=== PATIENT | female | born 1990 | race Caucasian/White ===

== ENCOUNTER 2023-01-18 08:04 | Emergency (ER) | payer SELFPAY ==
--- NOTE | 2023-01-18 08:07 | XRR_ITS ---
PROCEDURE INFORMATION: Exam: XR Chest Exam date and time: 01/18/2023 8:53 AM Age: 32 years old Clinical indication: Pain; Chest pressure; Additional info: Cp TECHNIQUE: Imaging protocol: Radiologic exam of the chest. Views: 1 view. COMPARISON: No relevant prior studies available. FINDINGS: Lungs: Unremarkable. No consolidation. Pleural spaces: Unremarkable. No pleural effusion. No pneumothorax. Heart/Mediastinum: Unremarkable. No cardiomegaly. Bones/joints: Unremarkable. XR/XR chest 1V portable [id number] IMPRESSION: No acute findings.
--- NOTE | 2023-01-18 08:08 | ECG_ITS ---
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 Measurements Intervals [place] Rate: 72 P: 67 OH: 182 QRS: 51 QRSD: 97 T: 56 QT: 379 QTc: 417 Interpretive Statements SINUS RHYTHM No previous ECG available for comparison Electronically Signed On 01-19-2023 9:42:52 FREIGHT BOOKER by Sanjana Fontenot M.D. [id number]
[2023-01-18 08:20] VITALS: BP 171/85; PULSE 76; RESP 16; TEMP 37.1; O2SAT 100; BMI 25.0
--- NOTE | 2023-01-18 08:26 | ED_ITS ---
HPI - Chest Pain General: Chief Complaint: Chest Pain Stated Complaint: chest pain Time Seen by Provider: 01/18/23 08:07 Source: patient Mode of arrival: ambulatory Limitations: no limitations History of Present Illness: 32-year-old female states that she had had some chest discomfort this morning. States it was a sharp pain she checked her blood pressure was in the 180s. States the pain is since resolved she has no known history of hypertension and is hypertensive here she denies any shortness of breath denies any cough or fever. Denies any abdominal pain or vomiting Associated symptoms: Deny abdominal pain, dyspnea, fever(s), nausea or vomiting Review of Systems Const: Denies: fever(s), chills, body aches or change in appetite ENMT: Denies: throat pain or dental pain Card: Reports: chest pain Resp: Denies: dyspnea GI: Denies: abdominal pain, nausea, vomiting or diarrhea : Denies: dysuria Musc: Denies: neck pain or back pain Skin/Breast: Denies: rash Neuro: Denies: headache(s) Physical Exam Const: COMMON NORMALS: no acute distress, patient oriented x3 and healthy appearing HENMT: COMMON NORMALS: normocephalic and atraumatic HEAD & SCALP: normocephalic and atraumatic Eye: COMMON NORMALS: Equal, round and reactive pupils present and EOMs intact bilaterally PUPIL: Yes Equal, round and reactive pupils present Neck/C-Spine: COMMON NORMALS: full ROM and supple Chest: COMMONS NORMALS: normal inspection of the chest and normal palpation of entire chest wall Resp: COMMON NORMALS: normal respiratory effort, No retractions, No use of accessory muscles and clear to auscultation bilaterally AUSCULTATION: clear to auscultation bilaterally Cardio: COMMON NORMALS: regular rate, regular rhythm and No murmurs present (Cardio) RATE: regular rate RHYTHM: regular rhythm GI: COMMON NORMALS: Normal to inspection, nondistended, normoactive bowel sounds present, Soft to palpation, non-tender and no masses PALPATION: Yes Soft to palpation Extremity: COMMON NORMALS: normal to inspection and full ROM Neuro: COMMON NORMALS: patient oriented x3, moves all extremities and no focal motor deficits Psych: COMMON NORMALS: mental status grossly normal, Normal thought process present and cooperative THOUGHT PROCESS: Normal thought process present Skin: COMMON NORMALS: no rashes or lesions noted and no wounds GENERAL SKIN EXAM: no rashes or lesions noted Course Vital Signs: Vital signs: Vital Signs Temperature 98.7 F 01/18/23 08:20 Pulse Rate 70 01/18/23 08:36 Respiratory Rate 16 01/18/23 08:36 Blood Pressure 171/85 01/18/23 08:36 Pulse Oximetry 100 01/18/23 08:36 Oxygen Delivery Me thod Room Air 01/18/23 08:36 MDM - Chest Pain Medical Decision Making Patient presents here with chest pains atypical in nature her initial troponin here is negative no signs of acute coronary syndrome. She has no signs of dissection or pulmonary embolism. She did have hypertension its improved here with hydralazine we will start her on Norvasc she is to follow-up with PCP and return if worsening she understands agrees to plan Medical Records I reviewed the patient's medical records. Lab Data I reviewed the patient's lab results. 01/18/23 08:24 01/18/23 08:24 Laboratory Results WBC 7.47 10^3/uL (3.29-11.43) 01/18/23 08:24 RBC 4.05 10^6/uL (3.85-5.65) 01/18/23 08:24 Hgb 9.90 g/dL (11.27-16.99) L 01/18/23 08:24 Hct 33.4 % (36-47) L 01/18/23 08:24 MCV 82.5 fl (85-98) L 01/18/23 08:24 MCH 24.4 pg (27-33) L 01/18/23 08:24 MCHC 29.6 g/dL (30-55) L 01/18/23 08:24 RDW 14.6 % (12.1-15.1) 01/18/23 08:24 Plt Count 218 10^3/cmm (157-399) 01/18/23 08:24 MPV 8.7 fL (7.4-10.4) 01/18/23 08:24 Neut % (Auto) 72.0 % 01/18/23 08:24 Lymph % (Auto) 19.9 % 01/18/23 08:24 [place] % (Auto) 5.1 % 01/18/23 08:24 Eos % (Auto) 2.3 % 01/18/23 08:24 Baso % (Auto) 0.4 % 01/18/23 08:24 Neut # (Auto) 5.38 10^3/uL (1.8-7.7) 01/18/23 08:24 Lymph # (Auto) 1.5 10^3/uL (0.8-4.8) 01/18/23 08:24 [place] # (Auto) 0.4 10^3/uL (0.2-0.9) 01/18/23 08:24 Eos # (Auto) 0.2 10^3/uL (0.0-0.8) 01/18/23 08:24 Baso # (Auto) 0.0 10^3/uL (0.0-0.1) 01/18/23 08:24 Nucleated RBC % (auto) 0 % 01/18/23 08:24 Nucleated RBCs # 0.0 /100WBC 01/18/23 08:24 Sodium 141 mmol/L (136-145) 01/18/23 08:24 Potassium 3.6 mmol/L (3.5-5.1) 01/18/23 08:24 Chloride 104 mmol/L (98-107) 01/18/23 08:24 Carbon Dioxide 25 mmol/L (22-29) 01/18/23 08:24 Anion Gap 15.6 (5-19) 01/18/23 08:24 BUN 10 mg/dL (6-20) 01/18/23 08:24 Creatinine 0.7 mg/dL (0.5-0.9) 01/18/23 08:24 GFR Calculation 95.8 mL/min (90-130) 01/18/23 08:24 Glucose 106 mg/dL (65-115) 01/18/23 08:24 Calculated Osmolality 291 mOsm/kg (285-295) 01/18/23 08:24 Calcium 9.2 mg/dL (8.5-10.5) 01/18/23 08:24 Total Bilirubin 0.7 mg/dL (0.15-1.2) 01/18/23 08:24 AST 14 U/L (0-32) 01/18/23 08:24 ALT 11 U/L (0-33) 01/18/23 08:24 Alkaline Phosphatase 60 U/L (35-105) 01/18/23 08:24 Troponin T Baseline < 6 ng/L (0-10) 01/18/23 08:24 Total Protein 7.2 g/dL (6.6-8.7) 01/18/23 08:24 Albumin 4.6 g/dL (3.5-5.2) 01/18/23 08:24 Globulin 2.6 g/dL (1.3-4.6) 01/18/23 08:24 Lipase 34 U/L (13-60) 01/18/23 08:24 All radiology interpretation(s) finalized by discharge EKG Data EKG 1: I personally reviewed and interpreted this EKG as follows: EKG interpretation date: 01/18/23 EKG interpretation time: 08:08 Interpretation: nsr hr [address] or t wave abnormalities qrs 97 qtc 404 Discharge Plan Discharge Patient Disposition: Home Clinical Impression: Hypertension, Chest pain Condition: Stable Prescriptions: New amlodipine [Norvasc] 5 mg tablet 5 mg PO DAILY Qty: 30 0RF Discharge Orders: Discharge ED (Routine); Ordered 01/18/23 Ordered By: Laura Elise Discharge Diet: Advance as tolerated Discharge Activity: Resume usual activity Patient Instructions: Chest Pain (ED), Hypertension (ED) Coding Level of Care Code ED Shaper Setter for Chg Delvin
[2023-01-18 08:31] LABS: Basophils % 0.4 %; Eosinophils # 0.2 10^3/uL (0.0-0.8); Eosinophils % 2.3 %; Hematocrit 33.4 % (36-47); Lymphocytes # 1.5 10^3/uL (0.8-4.8); Lymphocytes % 19.9 %; Mean Corpuscular HGB Conc 29.6 g/dL (30-55); Mean Corpuscular Hemoglobin 24.4 pg (27-33); Mean Corpuscular Volume 82.5 fl (85-98); Mean Platelet Volume 8.7 fL (7.4-10.4); Monocytes # 0.4 10^3/uL (0.2-0.9); Monocytes % 5.1 %; Neutrophils # 5.38 10^3/uL (1.8-7.7); Nucleated Red Blood Cells % 0 %; Platelet Count 218 10^3/cmm (157-399); Red Blood Count 4.05 10^6/uL (3.85-5.65); Red Cell Distribution Width 14.6 % (12.1-15.1); White Blood Count 7.47 10^3/uL (3.29-11.43)
[2023-01-18] MEDS: hyDRALAzine 20 mg/mL INJ 1 mL 10 MG IVP (08:35)
[2023-01-18 08:36] VITALS: BP 171/85; PULSE 70; RESP 16; O2SAT 100
[2023-01-18 08:53] LABS: Troponin(5th) Baseline < 6 ng/L (0-10)
[2023-01-18 08:55] LABS: Alanine Aminotransferase 11 U/L (0-33); Albumin Level 4.6 g/dL (3.5-5.2); Alkaline Phosphatase 60 U/L (35-105); Anion Gap 15.6 (5-19); Aspartate Amino Transferase 14 U/L (0-32); Blood Urea Nitrogen 10 mg/dL (6-20); Calcium 9.2 mg/dL (8.5-10.5); Carbon Dioxide 25 mmol/L (22-29); Chloride 104 mmol/L (98-107); Globulin 2.6 g/dL (1.3-4.6); Glomerular Filtration Rate 95.8 mL/min (90-130); Glucose 106 mg/dL (65-115); Lipase 34 U/L (13-60); Osmolality Calculated 291 mOsm/kg (285-295); Potassium 3.6 mmol/L (3.5-5.1); Sodium 141 mmol/L (136-145); Total Bilirubin 0.7 mg/dL (0.15-1.2); Total Protein 7.2 g/dL (6.6-8.7)
[2023-01-18 08:57] VITALS: BP 91/65; PULSE 71; RESP 17; O2SAT 100
== END 2023-01-18 09:32 | disposition home or self-care (01) ==
PROVIDERS: Emergency Provider Emergency Medicine
DX: R07.9 Chest pain, unspecified (principal); I10 Essential (primary) hypertension
CPT/HCPCS: 36415; 71045; 80053; 83690; 84484; 85025; 93005; 96374; 99285; J0360

== ENCOUNTER 2023-06-29 15:05 | Outpatient (CLI) | payer OTHER, SELFPAY ==
--- NOTE | 2023-06-29 15:15 | USCV_ITS ---
Arelis Hook Age: 33 Gender: F : 1990 Exam Date: 06/29/2023 15:31 Ordering Phys: Valeria Whittington NP Technologist: KAYLEY [place] [facility] [place]: HTN, edema BP: 117 / 80 HR: 178 Rhythm: Sinus Technical Quality: Good MEASUREMENTS (Male / Female) Normal Values 2D ECHO LV Diastolic Diameter PLAX 4.8 cm 4.2 - 5.9 / 3.9 - 5.3 cm IVS Diastolic Thickness 1.0 cm 0.6 - 1.0 / 0.6 - 0.9 cm IVS Systolic Thickness 1.2 cm LVPW Diastolic Thickness 1.1 cm 0.6 - 1.0 / 0.6 - 0.9 cm LVPW Systolic Thickness 1.8 cm LVOT Diameter 2.0 cm LV Ejection Fraction 2D Teich 65.3 % LV Ejection Fraction MOD 2C 51.6 % LV Ejection Fraction 2C AL 54.8 % LA Diameter 3.5 cm RA Systolic Volume 4C AL 20.3 ml RA Systolic Volume 4C MOD 20.3 ml LA Sys Volume AL 40.1 cm cubed LA Sys Volume Index AL 20.6 cm cubed/m squared Aorta at Sinotubular Diameter 2.8 cm IVC Diameter 1.6 cm M-MODE LA Ao Ratio MM 1.4 AV Cusp Separation MM 1.3 cm DOPPLER AV Peak Velocity 151.0 cm/s LVOT Peak Velocity 115.0 cm/s AV Area Cont Eq vti 2.2 cm squared AV Area Cont Eq pk 2.4 cm squared MV Peak Velocity 105.0 cm/s MV Area PHT 3.0 cm squared Mitral E to A Ratio 1.2 TV Peak Velocity 97.5 cm/s TR Peak Velocity 101.0 cm/s TR Peak Gradient 4.1 mmHg TR Mean Velocity 72.0 cm/s TR Mean Gradient 2.3 mmHg TR Velocity Time Integral 20.0 cm TV Peak E Velocity 75.0 cm/s Right Atrial Pressure 3.0 mmHg Pulmonary Artery Systolic Pressu 7.1 mmHg PV Peak Velocity 106.5 cm/s RV Ejection Time 0.3 s FINDINGS Left Ventricle Normal LV size with a borderline low ejection fraction of 50 to 55%. Relative hypokinesia of the septum Right Ventricle The right ventricle is normal in size and function. Right Atrium The right atrium is normal in size. Left Atrium The left atrium is normal in size. Mitral Valve No gross abnormalities noted Aortic Valve No gross abnormalities noted Tricuspid Valve Trace tricuspid valve regurgitation. Pulmonic Valve No gross abnormalities noted Pericardium Normal pericardium without effusion. Aorta Normal ascending aorta dimension. IVC The inferior vena cava not visualized well CONCLUSIONS Normal LV size with a borderline low ejection fraction of 50 to 55%. Relative hypokinesia of the septum. Trace tricuspid valve regurgitation. There is no pericardial effusion. There are no intracardiac masses. No similar previous studies are available for comparison Dr Reji Gomez MD [facility] (Electronically Signed) Final Date: 05 July 2023 18:03 S
== END 2023-06-29 15:06 | disposition home or self-care (01) ==
LOC: RAD 15:06
PROVIDERS: PCP Nurse Practitioner Family; Visit Provider Nurse Practitioner Family
DX: I10 Essential (primary) hypertension (principal); R60.0 Localized edema
CPT/HCPCS: 93306

== ENCOUNTER 2023-10-22 07:46 | Oncology outpatient (recurring) (ONCR) | payer OTHER, SELFPAY ==
--- NOTE | 2023-10-06 08:00 | PC.NURSE ---
Received order for Infed to infuse over 1 hour. Hospital policy is to give pt test dose after premeds, wait an hour, then infuse medication in a 1000mL bag over 4 hours. 10/01/23- called providers office to notify of policy. No answer 10/05/23- Called providers office, left vm for nurse to return call. JW
[2023-10-22 07:57] VITALS: BP 141/80; PULSE 67; RESP 16; TEMP 36.6; O2SAT 98
[2023-10-22] MEDS: sodium chloride 0.9% 500 ML 75 ML IV (08:28)
[2023-10-22] MEDS: diphenhydrAMINE 50 mg/mL SDV 1mL 25 MG IVP (08:29)
[2023-10-22] MEDS: acetaminophen 325 mg Tablet 650 MG PO (08:30)
[2023-10-22] MEDS: iron dextran 25 MG in SYRINGE 1 EACH 30 MG IVP (08:56)
[2023-10-22] MEDS: iron dextran 1,000 MG in sodium chloride 0.9% 1,000 ML 250.75 MG IV (10:17)
[2023-10-22 14:40] VITALS: BP 121/60; PULSE 61; RESP 18; TEMP 36.6; O2SAT 97
== END 2023-11-07 23:59 | disposition home or self-care (01) ==
LOC: ONCMED 07:48
PROVIDERS: PCP Nurse Practitioner Family; Visit Provider Nurse Practitioner Family
DX: Z79.899 Other long term (current) drug therapy (principal); D50.9 Iron deficiency anemia, unspecified
CPT/HCPCS: 96365; 96366; 96375; J1200; J1750; J7030; J7040

== ENCOUNTER → 2024-01-11 13:34 | Outpatient (BNVA) | payer OTHER, SELFPAY | PROVIDERS: PCP Nurse Practitioner Family; Referring Provider Nurse Practitioner Family; Visit Provider Internal Medicine Cardiovascular Disease | DX: R00.1 Bradycardia, unspecified (principal); I44.0 Atrioventricular block, first degree; R07.9 Chest pain, unspecified | CPT/HCPCS: 93005 ==

== ENCOUNTER 2024-02-22 08:06 | Outpatient (CLI) | payer OTHER, SELFPAY ==
[2024-02-22 08:26] VITALS: BMI 28.4
--- NOTE | 2024-02-22 08:49 | ECG_ITS ---
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
[2024-02-22 10:27] VITALS: BP 154/77; PULSE 83
== END 2024-02-22 08:07 | disposition home or self-care (01) ==
PROVIDERS: PCP Nurse Practitioner Family; Visit Provider Internal Medicine Cardiovascular Disease
DX: R07.9 Chest pain, unspecified (principal); R06.02 Shortness of breath
CPT/HCPCS: 36415; 78452; 93017; A9500

== ENCOUNTER → 2024-10-28 11:16 | Outpatient (BNVA) | payer SELFPAY | PROVIDERS: Visit Provider Family Medicine | DX: I10 Essential (primary) hypertension (principal); D50.9 Iron deficiency anemia, unspecified | CPT/HCPCS: 80053; 82728; 83550; 84443; 85025 ==